=== PATIENT | male | born 1975 | race Caucasian/White ===

== ENCOUNTER 2019-02-23 19:56 | Emergency (ER) | payer BC ==
[2019-02-23] MEDS ORDERED: Acetaminophen/HYDROcodone 325-5 MG Tab PO ONE (19:57)
[2019-02-23 20:06] VITALS: BP 112/72; PULSE 104
[2019-02-23] MEDS ORDERED: Take Home: Acetaminophen/HYDROcodone 325-5 MG, 2 Tab Pack PO ONE (21:45)
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
== END 2019-02-23 21:55 | disposition home or self-care (01) ==
LOC: CC.ED 19:56
DX: S93.491A Sprain of other ligament of right ankle, initial encounter (principal); X50.1XXA Overexertion from prolonged static or awkward postures, initial encounter; Y93.01 Activity, walking, marching and hiking
CPT/HCPCS: 73610; 99283; A9270

== ENCOUNTER 2023-12-22 09:10 | Day surgery (SDC) | payer BC ==
[2023-12-22] MEDS: Lactated Ringers 1,000 ML IV SCH (09:48)
[2023-12-22] MEDS ORDERED: Ketamine 200 MG/20 ML MDV ONE (10:05)
[2023-12-22] MEDS ORDERED: Metoclopramide 10 MG/2 ML SDV ONE (10:05)
[2023-12-22] MEDS ORDERED: fentaNYL 50 MCG/ML SDV ONE ×2 (10:05)
[2023-12-22] MEDS ORDERED: Propofol 200 MG/20 ML SDV ONE (10:05)
[2023-12-22] MEDS: Ketorolac 30 MG/ML SDV ONE (10:07)
[2023-12-22] MEDS: Ondansetron 4 MG/2 ML SDV ONE ×2 (10:07)
[2023-12-22 11:06] VITALS: BP 136/75; PULSE 84
[2023-12-22] MEDS: Ondansetron 4 MG/2 ML SDV IVPUSH ONE (11:08)
[2023-12-22] MEDS: Ketorolac 30 MG/ML SDV IVPUSH ONE (11:08)
[2023-12-22 11:13] LABS: ALBUMIN 3.8 g/dL (3.4-5.0); BILIRUBIN TOTAL 0.5 mg/dL (0.0-1.0); CREATININE 0.9 mg/dL (0.7-1.3); EST CRCL DRUG DOSING (CG) 104.77 mL/min; POTASSIUM,K 4.3 mEq/L (3.5-5.0); PROTEIN TOTAL,TP 6.3 g/dL (6.4-8.2)
== END 2023-12-22 11:19 | disposition home or self-care (01) ==
LOC: CC.SDS 09:10
PROVIDERS: ATTEND Family Medicine
DX: K52.9 Noninfective gastroenteritis and colitis, unspecified (principal)
CPT/HCPCS: 00811; 36415; 80053; 83690; 85651; 85652; J1885; J2405; J2704; J2765; J3010; J3490; J7120

== ENCOUNTER 2024-12-01 06:19 | Emergency (ER) | payer BC ==
[2024-12-01 06:57] LABS: APPEARANCE,URINE CLEAR (CLEAR); GLUCOSE,URINE NEGATIVE (NEGATIVE); OCCULT BLOOD,URINE NEGATIVE (NEGATIVE)
[2024-12-01 07:05] LABS: EPITHELIAL CELLS,URINE RARE /HPF (NOT SEEN)
[2024-12-01 07:13] LABS: BASOPHILS ABSOLUTE AUTO 0.06 10^3/uL (0.00-0.50); BASOPHILS PERCENT AUTO 1.2 % (0-1); EOSINOPHILS ABSOLUTE AUTO 0.23 10^3/uL (0.00-1.50); EOSINOPHILS PERCENT AUTO 4.6 % (0-6); IMMATURE GRAN ABSOLUTE AUTO 0.01 10^3/uL (0.00-0.49); IMMATURE GRAN PERCENT AUTO 0.2 % (0.0-4.9); LYMPHOCYTES ABSOLUTE AUTO 1.42 10^3/uL (0.60-5.00); LYMPHOCYTES PERCENT AUTO 28.7 % (24-44); MONOCYTES ABSOLUTE AUTO 0.52 10^3/uL (0.00-1.50); MONOCYTES PERCENT AUTO 10.5 % (0-10); NEUTROPHILS ABSOLUTE AUTO 2.71 x10^3/uL (1.80-8.00); NEUTROPHILS PERCENT AUTO 54.8 % (41-71); PLATELET COUNT,PLT 247 10^3/uL (150-400); RED BLOOD CELL COUNT 4.62 x10^6/uL (4.50-6.00); WHITE BLOOD CELL COUNT,WBC 5.0 10^3/uL (4.0-11.0)
[2024-12-01 07:15] LABS: ALANINE AMINOTRANSFERASE,ALT 35.0 U/L (12-78); ASPARTATE AMNIOTRANSFERASE,AST 25.0 U/L (15-37); BILIRUBIN TOTAL 0.3 mg/dL (0.0-1.0); BLOOD UREA NITROGEN,BUN 23.0 mg/dL (7-18); CARBON DIOXIDE,CO2 30.0 mmol/L (21-32); CHLORIDE,CL 104.0 mEq/L (98-106); CREATININE 1.3 mg/dL (0.7-1.3); EST CRCL DRUG DOSING (CG) 69.49 mL/min; GLUCOSE RANDOM 105.0 mg/dL (75-99); POTASSIUM,K 4.5 mEq/L (3.5-5.0); PROTEIN TOTAL,TP 6.6 g/dL (6.4-8.2); SODIUM,NA 139.0 mEq/L (136-145)
[2024-12-01] MEDS: Iopamidol 755 Mg/ML 100 ML Bottle IVPUSH ONE (07:27)
[2024-12-01 07:30] LABS: ESTIMATED GFR 68.0 mL/min (>=60)
[2024-12-01] MEDS: Ondansetron 4 MG/2 ML SDV IVPUSH STA (08:10)
[2024-12-01] MEDS: Take Home: Acetaminophen/HYDROcodone 325-5 MG, 2 Tab Pack PO ONE (09:28)
[2024-12-01 10:01] VITALS: BP 129/74; PULSE 88
== END 2024-12-01 09:50 | disposition home or self-care (01) ==
LOC: CC.ED 06:19
DX: R10.31 Right lower quadrant pain (principal); Z79.899 Other long term (current) drug therapy
CPT/HCPCS: 36415; 74177; 80053; 81001; 83735; 85025; 86140; 96374; 96375; 96376; 99284; 99284-25; A9270-GY; J1171; J2405; J7030; Q9967